=== PATIENT | male | born 1990 | race African-American/Black ===

== ENCOUNTER 2017-04-27 20:12 | Emergency (ER) | payer OTHER ==
[~2017-04-27] VITALS: Ht 180.3 cm; Wt 104.5 kg
[2017-04-27 20:20] VITALS: TEMP 37.4; Ht 180.3 cm; Wt 104.5 kg
[2017-04-27] MEDS ORDERED: QUET1TAB34 PO (20:30)
[2017-04-27] MEDS ORDERED: TRAZ50TA35 PO (20:30)
[2017-04-27] MEDS ORDERED: HYDR50CA2 PO (20:30)
[2017-04-27] MEDS ORDERED: IBUPROFEN 800 MG TAB PO STA (20:51)
--- NOTE | 2017-04-27 21:12 | EMERGENCY ROOM VISIT NOTE ---
ED Visit Note First contact with patient: 20:46 CHIEF COMPLAINT: Ankle pain HISTORY OF PRESENT ILLNESS: This 27-year-old male patient presents to the emergency department from [facility], approximately 2 hours after sustaining an injury to the right ankle and foot with a twisting, inversion motion while playing basketball. The patient states he rolled his right ankle and thought he heard a pop he states he jumped, then came down, which is when he rolled the ankle on the ground. The patient complains of pain along the outside, inside, and front of the ankle. The patient denies pain of the foot. The patient rates the pain as throbbing and 7/10. The patient is able to bear weight on the foot, however this significantly worsens his pain. Constant pain, worse with movement, weight bearing, and the dependent position. No knee pain, the patient is able to move their toes. No numbness or weakness of the foot, no laceration. The patient has not had a previous fracture to this ankle. The patient has taken nothing for the pain. The patient denies any other injury. REVIEW OF SYSTEMS: A 6 system review of systems was completed with positives and pertinent negatives listed in the HPI. ALLERGIES: None MEDICATIONS: Seroquel, trazodone, Vistaril PMH: Anxiety SOCIAL HISTORY: The patient is an inmate at the [facility]. He denies drug, alcohol, tobacco use. PHYSICAL EXAM: Vital Signs: Reviewed Nurse's notes, vital signs stable. GENERAL : This is a 27-year-old male, no acute distress, but appears in pain, well- developed, well-nourished, presents in a wheelchair. MENTAL STATUS: Alert, oriented to person place and time, and cooperative. MUSCULOSKELETAL: The right ankle is swollen and tender over the lateral and medial malleoli, but the skin is intact and there is no ligamentous instability. There is also mild tenderness in the anterior aspect of the ankle. There is no fifth metatarsal tenderness. There is no tenderness over the rest of the foot. There is no calf or tibia/fibular tenderness. There is no visual deformity. The foot and toes are warm and well-perfused. Dorsalis pedis pulse 2+. Sensation to pain and light touch is intact. Capillary refill less than 2 seconds. RADIOLOGY: X-Ray Right Ankle: RIGHT ANKLE 3 VIEWS CLINICAL HISTORY: Right leg injury. FINDINGS: 3 views of the right ankle are obtained. No prior studies are available for comparison at the time of dictation. The skeletal structures are well mineralized. No fracture is seen. The ankle mortise is intact. There is a joint effusion and soft tissue swelling is present around the ankle. There is a large cortical-based sclerotic lesion identified within the lateral distal tibial metadiaphyseal region. This measures up to 5.5 cm. IMPRESSION: 1. Soft tissue swelling and joint effusion. No right ankle fracture is seen. 2. 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 Consider precautionary 6 month radiographic follow-up. Electronically signed by: Isael Benson M.D. 04/27/2017 9:19 PM Dictated Date/Time: 04/27/2017 9:16 PM EMERGENCY DEPARTMENT COURSE: I examined the patient. The patient was given 100 mg ibuprofen to help with pain and swelling. X-rays of the right ankle were reviewed by myself and read by radiology and reveal no acute fracture or dislocation. There was an abnormal finding noted on the x-ray, which is described above. The patient was provided with copies of the x-ray and report to take to the medical staff at the group home for follow-up. A Gel ankle splint was applied to the ankle under my direction and the position was satisfactory. Neurovascular status was rechecked and intact. The patient will receive crutches when he returns to the group home. The patient was discharged home in good condition. DIFFERENTIAL DIAGNOSIS: Sprain, strain, fracture, contusion, and others DIAGNOSIS: Right Ankle sprain Problem List Medical Problems: (1) Pharyngitis Status: Resolved Current/Historical Medications Scheduled Hydroxyzine Pamoate (Vistaril), 50 MG PO TID Quetiapine Fumarate (Seroquel), 100 MG PO HS Trazodone Hcl (Trazodone), 50 MG PO HS Allergies Coded Allergies: No Known Allergies (Unverified , NONE, 04/27/17) Vital Signs Date Time Temp Pulse Resp B/P (MAP) Pulse Ox O2 Delivery O2 Flow Rate FiO2 04/27/17 22:01 75 17 148/98 98 04/27/17 20:20 37.4 79 18 132/81 98 Room Air Medications Administered Medications (Trade) Dose Ordered Sig/Lory Route Start Time Stop Time Status Last Admin Dose Admin Ibuprofen (Motrin Tab) 800 mg NOW STAT PO 04/27/17 20:51 04/27/17 20:52 DC 04/27/17 21:11 800 MG Departure Information Impression Primary Impression: Right ankle sprain 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 For pain control, you can use the following [id number] medicines (if >12 yo): Ibuprofen(Motrin, Advil) may be used for fever or pain. Use 600mg every six hours as needed. Take with food. Avoid using more than 2400mg in a 24 hour period. Do not use 2400mg per day for more than three consecutive days without physician direction. Prolonged inappropriate use can lead to stomach upset or ulcers. (AND/OR) Acetaminophen(Tylenol) may be used for fever or pain. Use 1000mg every six hours as needed. Avoid using more than 3000mg in a 24 hour period. If this is a recent injury (<24 hrs), ice can be applied to the area of pain for the first 3 days to help decrease pain and inflammation. Follow-up with orthopedics if no improvement in 1-2 weeks. Use the ankle splint and/or ROXANNA wrap to help provide compression and support of the ankle. Use crutches provided by the group home to avoid weight-bearing until it becomes tolerable. Return to the Emergency Department if your current symptoms worsen despite treatment course outlined above, or if you develop any of the following symptoms : intractable pain despite aforementioned treatment course or new onset of numbness or tingling of the foot. Problem Qualifiers Primary Impression: Right ankle sprain Encounter type: initial encounter Involved ligament of ankle: unspecified ligament Qualified Codes: S93.401A - Sprain of unspecified ligament of right ankle, initial encounter
--- NOTE | 2017-04-27 21:20 | DIAGNOSTIC IMAGING REPORT ---
RIGHT ANKLE 3 VIEWS CLINICAL HISTORY: Right leg injury. FINDINGS: 3 views of the right ankle are obtained. No prior studies are available for comparison at the time of dictation. The skeletal structures are well mineralized. No fracture is seen. The ankle mortise is intact. There is a joint effusion and soft tissue swelling is present around the ankle. There is a large cortical-based sclerotic lesion identified within the lateral distal tibial metadiaphyseal region. This measures up to 5.5 cm. IMPRESSION: 1. Soft tissue swelling and joint effusion. No right ankle fracture is seen. 2. 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 Consider precautionary 6 month radiographic follow-up. Electronically signed by: Isael Benson M.D. 04/27/2017 9:19 PM Dictated Date/Time: 04/27/2017 9:16 PM
[2017-04-27 22:01] VITALS: BP 148/98; PULSE 75; O2SAT 98
== END 2017-04-27 22:00 | disposition home or self-care (01) ==
LOC: C.EDB 20:14 → C.EDD 22:00
DX: S93.401A Sprain of unspecified ligament of right ankle, initial encounter (principal); X50.9XXA Other and unspecified overexertion or strenuous movements or postures, initial encounter; F41.9 Anxiety disorder, unspecified